=== PATIENT | male | born 1985 | race American Indian/Alaskan Native ===

== ENCOUNTER 2018-01-08 12:08 | Emergency (ER) | payer SELFPAY ==
[2018-01-08 13:03] LABS: Bilirubin,Urine NEG (Negative); Blood,Urine NEG (Negative); Color,Urine Yellow (Yellow); Protein,Urine <15 mg/dL mg/dL (Negative); Urobilinogen,Urine < 2.0 mg/dL (<2.0)
--- NOTE | 2018-01-08 13:58 | Emergency Department Report ---
ED General Adult HPI - General Chief complaint: Urogenital-Male Stated complaint: r flank and r abd pain with blood in urine, some nausea Time Seen by Provider: 01/08/18 13:27 Source: patient Mode of arrival: Ambulatory Limitations: No Limitations - History of Present Illness -: Gradual, days(s) (2) Location: back, abdomen, right Radiation: abdomen Severity scale (0 -10): 6 Quality: constant - Related Data Previous Rx's Medication Instructions Recorded Last Taken Type Cefdinir 300 mg PO BID 7 Days #14 capsule 01/08/18 Unknown Rx Allergies Allergy/AdvReac Type Severity Reaction Status Date / Time No Known Allergies Allergy Unverified 01/08/18 12:24 ED Review of Systems ROS: Stated complaint: BLOOD IN URINE AND STOOL Other details as noted in HPI Constitutional: denies: chills, fever Eyes: denies: eye pain, eye discharge, vision change ENT: denies: ear pain, throat pain Respiratory: denies: cough, shortness of breath, wheezing Cardiovascular: denies: chest pain, palpitations Endocrine: no symptoms reported Gastrointestinal: as per HPI. denies: abdominal pain, nausea, diarrhea Genitourinary: hematuria. denies: urgency, dysuria Musculoskeletal: denies: back pain, joint swelling, arthralgia Skin: denies: rash, lesions Neurological: denies: headache, weakness, paresthesias Psychiatric: denies: anxiety, depression Hematological/Lymphatic: denies: easy bleeding, easy bruising ED Past Medical Hx - Past Medical History Previous Medical History?: No Hx Hypertension: No Hx CVA: No Hx Heart Attack/AMI: No Hx Congestive Heart Failure: No Hx Diabetes: No Hx Deep Vein Thrombosis: No Hx Pulmonary Embolism: No Hx Liver Disease: No Hx of Cancer: No Hx Sickle Cell Disease: No Hx Kidney Stones: No Hx Asthma: No Hx COPD: No - Surgical History Past Surgical History?: No - Social History Smoking Status: Never Smoker Substance Use Type: Heroin, Marijuana - Medications Home Medications: Home Medications Medication Instructions Recorded Confirmed Last Taken Type Cefdinir 300 mg PO BID 7 Days #14 capsule 01/08/18 Unknown Rx ED Physical Exam - General Limitations: No Limitations General appearance: alert, in no apparent distress - Head Head exam: Present: atraumatic, normocephalic - Eye Eye exam: Present: normal appearance - ENT ENT exam: Present: mucous membranes moist - Neck Neck exam: Present: normal inspection - Respiratory Respiratory exam: Present: normal lung sounds bilaterally. Absent: respiratory distress - Cardiovascular Cardiovascular Exam: Present: regular rate, normal rhythm. Absent: systolic murmur, diastolic murmur, rubs, gallop - GI/Abdominal GI/Abdominal exam: Present: soft, tenderness (mild r cva r lower), normal bowel sounds - Rectal Rectal exam: Present: deferred - Extremities Exam Extremities exam: Present: normal inspection - Back Exam Back exam: Present: normal inspection - Neurological Exam Neurological exam: Present: alert, oriented X3 - Psychiatric Psychiatric exam: Present: normal affect, normal mood - Skin Skin exam: Present: warm, dry, intact, normal color. Absent: rash ED Course Vital Signs 01/08/18 12:24 Temperature 98.5 F Pulse Rate 71 Respiratory 20 Rate Blood Pressure 122/68 O2 Sat by Pulse 99 Oximetry - Reevaluation(s) Reevaluation #1: 01/08/18 17:[address] report, pt comfortable ED Medical Decision Making - Lab Data Result diagrams: 01/08/18 14:20 01/08/18 14:45 - Radiology Data Radiology results: report reviewed (no acute findings) - Medical Decision Making pt has been sleeping in the ED, pain free , asymptomatic, may have uti, will rx abx Critical Care Time: No Critical care attestation.: If time is entered above; I have spent that time in minutes in the direct care of this critically ill patient, excluding procedure time. ED Disposition Clinical Impression: UTI (urinary tract infection) Qualifiers: Urinary tract infection type: site unspecified Hematuria presence: without hematuria Qualified Code(s): N39.0 - Urinary tract infection, site not specified Disposition: - TO HOME OR SELFCARE Is pt being admited?: No Does the pt Need Aspirin: No Condition: Good Instructions: Urinary Tract Infection in Men (ED) Additional Instructions: We were unable to find an emergent reason to explain your symptoms. We did find that you may have a urine infection, and I have written an oral antibiotic for you to treat your infection. Establish a primary care doctor, a metal machine operator, and a urologist, and continue to search for answers. Prescriptions: Cefdinir 300 mg PO BID 7 Days #14 capsule Referrals: PRIMARY CARE, [Primary Care Provider] - 3-5 Days DANIEL FRITZ MD [Staff Physician] - 3-5 Days Time of Disposition: 18:17
[2018-01-08] MEDS ORDERED: ZOFRAN IV ONE (13:59)
[2018-01-08] MEDS ORDERED: NACL 0.9% 1000 ML 1,000 ML IV ONE (13:59)
[2018-01-08] MEDS ORDERED: TORADOL IV ONE (13:59)
[2018-01-08 14:59] LABS: Basophils # (Auto) 0.1 K/mm3 (0.0-0.1); Basophils % (Auto) 1.1 % (0.0-1.8); Eosinophils # (Auto) 0.1 K/mm3 (0.0-0.4); Eosinophils % (Auto) 2.2 % (0.0-4.3); Hematocrit 42.1 % (35.5-45.6); Lymphocytes # (Auto) 2.3 K/mm3 (1.2-5.4); Lymphocytes % (Auto) 49.1 % (13.4-35.0); Mean Corpuscular HGB Conc 33 % (32-34); Mean Corpuscular Hemoglobin 27 pg (28-32); Mean Corpuscular Volume 80 fl (84-94); Monocytes # (Auto) 0.5 K/mm3 (0.0-0.8); Monocytes % (Auto) 10.3 % (0.0-7.3); Platelet Count 163 K/mm3 (140-440); Red Blood Count 5.29 M/mm3 (3.65-5.03); Red Cell Distribution Width 14.8 % (13.2-15.2)
[2018-01-08 15:08] LABS: BUN/Creatinine Ratio 14; Blood Urea Nitrogen 14 mg/dL (9-20); Calcium 8.6 mg/dL (8.4-10.2); Hemolysis Index 14
--- NOTE | 2018-01-08 18:08 | Cat Scan Report ---
FINAL REPORT EXAM: CT ABDOMEN PELVIS W CON HISTORY: r lower and r flank abd pain TECHNIQUE: Spiral CT scanning of the abdomen and pelvis after the uneventful administration of IV contrast. Multiplanar reformations. PRIORS: None. FINDINGS: Abdomen: Visualized lung bases grossly clear. Possible mild bilateral gynecomastia noted. No radiopaque gallstones. Liver without significant abnormality. Spleen without significant abnormality. Pancreas without significant abnormality. Kidneys without significant abnormality. Adrenal glands without significant abnormality. Pelvis: Bowel grossly unremarkable. Appendix within normal limits. No significant free peritoneal fluid, discrete abscess or apparent adenopathy. Abdominal aorta non-aneurysmal. No acute osseous abnormality in the axial skeleton. IMPRESSION: 1. No acute findings.
[2018-01-08] MEDS ORDERED: ROCEPHIN IM ONE (18:20)
[2018-01-08] MEDS ORDERED: XYLOCAINE 1% MPF 5 mL INFILTRATI ONE (18:20)
[2018-01-08 18:27] VITALS: BP 131/83
== END 2018-01-08 18:44 | disposition home or self-care (01) ==
LOC: EDSEX → ED 12:08
DX: N39.0 Urinary tract infection, site not specified (principal); F12.10 Cannabis abuse, uncomplicated
CPT/HCPCS: 36415; 74177; 80048; 81001; 85025; 96361; 96372; 96374; 96375; 99284; J0696; J1885; J2405; J7030; Q9967